=== PATIENT | female | born 1985 | race Caucasian/White ===

== ENCOUNTER → 2018-09-02 | Day surgery (SDC) | payer OTHER ==
[~2018-09-02] MED LIST: BIOTIN1000 MCG PO; DOXYCYCLINE HY100 M2 PO; FOLTX TABLET1 EACH PO; MULTIPLE VITAM1 EAC2 PO; Tylenol #3 PO; VITAMIN C500 M5 PO; ZYRTEC10 M3 PO
== END | disposition home or self-care (01) ==
LOC: ADM 08-31 11:30 → CIR.AMB 08:29
DX: N84.0 Polyp of corpus uteri (principal); D25.0 Submucous leiomyoma of uterus